=== PATIENT | female | born 1985 | race African-American/Black ===

== ENCOUNTER → 2019-03-20 | Day surgery (SDC) | payer OTHER ==
[~2019-03-20] MED LIST: LIDOCAINE 1% INJ-PF (10 MG/ML) 30 ML SDV ONE
--- NOTE | 2019-03-22 12:30 | WOMENS IMAGING REPORT ---
EXAM DESCRIPTION: U/S BREAST BX COMPLETED DATE/TIME: 03/22/2019 11:49 am REASON FOR STUDY: N63.20 UNSPECIFIED LUMP IN THE LEFT BREAST, UNSPECIFIED QUADRANT N63.20 UNSPECIFI ED LUMP IN THE LEFT BREAST, UNSPECIFIED QUAD COMPARISON: Outside mammograms and ultrasound TECHNIQUE: The procedure was discussed with the patient and the patient agreed to proceed. The patient was scanned and the area of interest in the 10 to 11 o'clock position left breast was loc alized. This correlates with the area of concern on prior imaging studies. This area was targeted fo r ultrasound-guided core biopsy. After sterile skin prep and 3.5 mL local lidocaine 1 % skin and deep tissue anesthesia, a 14 gauge co axial core biopsy needle was used to obtain several cores of tissue from the lesion. Under ultrasoun d guidance, a ribbon clip was placed in the areas sampled. There were no immediate post-procedure co mplications. MAMMOGRAM: Patient is . No mammogram performed today. Pathology yields a diagnosis of fat necrosis. Benign breast lobules. No atypia or malignancy Pathology is concordant. LIMITATIONS: None. FINDINGS: Ultrasound guided breast biopsy as described above. POST PROCEDURE MAMMOGRAMS FOR MARKER PLACEMENT: No IMPRESSION: ULTRASOUND-GUIDED CORE BIOPSY OF THE LEFT BREAST YIELDS A DIAGNOSIS OF FOCAL FAT NECROSI S. THIS IS CONCORDANT WITH THE IMAGING APPEARANCE.THIS IS A BENIGN FINDING WHICH REQUIRES NO FURTHER SPECIFIC WORKUP. BI-RADS 2 Benign findings. COMMENT: COMMUNICATION: THESE RESULTS WERE DISCUSSED WITH THE PATIENT 12 NOON, 03/22/2019. SHE UNDER STANDS THAT THIS IS A BENIGN DIAGNOSIS. Patient medication list reviewed: Yes- Quality ID# [id number]:Eligible professional attests to documenting i n the medical record they obtained, updated, or reviewed the patient's current medications. TECHNICAL DOCUMENTATION: JOB ID: [id number] [employer]- All Rights Reserved Reading location - IP/workstation name: [email or web address]
== END ==
LOC: WI 10:04
PROVIDERS: ATTEND Clinical Nurse Specialist Adult Health
DX: N63.20 Unspecified lump in the left breast, unspecified quadrant (principal)
CPT/HCPCS: 88342 ×2; 88305 ×2; 19083; J3490

== ENCOUNTER → 2019-03-24 | Outpatient (CLI) | payer OTHER | LOC: OD 11:25 | PROVIDERS: ATTEND Obstetrics & Gynecology | DX: O20.0 Threatened abortion (principal) | CPT/HCPCS: 36415; 86900; 86901 ==